=== PATIENT | male | born 2000 | race Caucasian/White ===

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

== ENCOUNTER → 2021-08-30 | Outpatient (REF) | payer OTHER, MEDICAID | LOC: M LAB REF 16:55 | PROVIDERS: ATTEND Pediatrics | DX: J06.9 Acute upper respiratory infection, unspecified (principal) ==